=== PATIENT | male | born 1975 | race Two or more races ===

== ENCOUNTER 2025-10-07 08:31 | Day surgery (SDC) | payer MEDICAID ==
[2025-10-02 11:53] LABS: Hematocrit 51.0 % (41.0-53.0); Hemoglobin 17.5 g/dL (13.5-17.5); Mean Corpuscular Hemoglobin 32.8 pg (28.0-32.0); Mean Corpuscular Volume 95.4 fL (80.0-100.0); Nucleated Red Blood Cells % 0.1 %
[2025-10-02 11:59] LABS: Urine Protein, UAD TRACE (Negative)
[2025-10-02 12:12] LABS: INR 1.07 (0.9-1.15); Partial Thromboplastin Time 28.6 SEC (24.5-34.5); Prothrombin Time 11.3 sec (9.3-11.8)
[2025-10-02 12:48] LABS: Alanine Aminotransferase 34 U/L (7-40); Albumin 4.6 g/dL (3.2-4.8); Anion Gap 10 (5-15); BUN/Creatinine Ratio 10.3 (10.0-20.0); Bilirubin, Total 0.9 mg/dL (0.2-1.0); Blood Urea Nitrogen 10 mg/dL (9-23); Calcium 9.4 mg/dL (8.7-10.4); Carbon Dioxide 29 mmol/L (20-31); Chloride 105 mmol/L (98-107); Glucose 94 mg/dL (74-106); Potassium 4.2 mmol/L (3.5-5.1); Sodium 144 mmol/L (136-145); Total Protein 7.4 g/dL (5.7-8.2)
[2025-10-02 12:56] LABS: Alkaline Phosphatase 124 U/L (46-116)
[~2025-10-07] VITALS: Ht 172.7 cm; Wt 90.7 kg
[~2025-10-07 08:31] MED LIST: BACL20TA PO; BUSP7.5T8 PO; HYDR10SY18 PO; OLAN1TAB PO; OXCA600T3 PO; QUET50TA PO
[2025-10-07] MEDS ORDERED: MEPERIDINE HCL (25 MG/ML) 1ML VIAL ONE (08:42)
[2025-10-07] MEDS ORDERED: fentaNYL CITRATE 100 MCG/2 ML VL ONE (08:42)
[2025-10-07] MEDS ORDERED: MIDAZOLAM HCL 2MG/2ML 2ml VIAL (1mg/ml) ONE (08:42)
[2025-10-07] MEDS ORDERED: LIDOCAINE HCL 2% TOP JELLY 5ML TOP ONE (08:42)
[2025-10-07] MEDS ORDERED: SODIUM CHLORIDE LOCK 50 ML ONE (08:42)
[2025-10-07] MEDS ORDERED: LIDOCAINE 1% INJ PF 5ML AMP ONE (08:42)
[2025-10-07] MEDS ORDERED: ONDANSETRON HCL 4 MG/2 ML VIAL ONE (08:42)
[2025-10-07] MEDS ORDERED: ceFAZolin 2 GM/D5W50ml 50 ML IV ONE (08:43)
[2025-10-07] MEDS ORDERED: KETAMINE 50mg/ML 1ml syringe ONE (08:44)
[2025-10-07] MEDS ORDERED: KETOROLAC TROMETH 30 MG/ML 1ML VIAL IV ONE (08:45)
[2025-10-07] MEDS ORDERED: HYDROmorphone HCL 2 MG/ML VL/or syr IV PRN ×2 (08:45)
[2025-10-07] MEDS ORDERED: MORPHINE SULFATE 4 MG/ML SYR/VIAL IV PRN (08:45)
[2025-10-07] MEDS ORDERED: METOCLOPRAMIDE HCL 5MG/ml INJ 2ml VIAL IV PRN (08:45)
[2025-10-07] MEDS ORDERED: BUPIVACAINE HCL 50 ML ONE (09:00)
[2025-10-07] MEDS ORDERED: MORPHINE SULFATE INJ 2 MG/ml SYRG IV PRN (09:27)
[2025-10-07 10:23] VITALS: TEMP 97.1
--- NOTE | 2025-10-07 10:27 | DVHOP2 ---
Operative Report - 2 Report Details Date: 10/07/25 Preop Diagnosis: Right knee possible ACL tear, possible meniscus re-tear Postop Diagnosis: Right knee medial plica with anterior fat pad impingement Surgeon: Carmen Sullivan MD Overnight Houseperson: Ned Gaines, Physician Overnight Houseperson Anesthesiologist: Dr Tao Anesthesia: General Implant: None Consent: The patient was informed of the risks and benefits of the procedure. These include but are not limited to complications of anesthesia, postoperative infection, incomplete relief of symptoms, recurrence of symptoms, damage to blood vessels, nerves and tendons, deep venous thrombosis, pulmonary embolism and possible need for repeat surgery in the future. Complications: None Estimated Blood Loss: Less than 5 mL Indications for Surgery: The patient is a 49-year-old male who presented to the clinic with a history of chronic knee pain. He had prior history of knee arthroscopy. He had a recent fall and clinical examination was concerning for possible ACL tear. He had multiple episodes of instability in the past as well. Nonoperative and operative management options were discussed. Surgery in the form of diagnostic arthroscopy due to chronic pain, possible ACL repair versus allograft re construction was discussed with him. Benefits, risks and treatment alternatives were discussed. Specific complications of the surgery such as neurovascular injury, infection, arthrofibrosis, loss of limb or life were discussed. He decided to proceed with the surgical option. Name of Procedure Performed Right knee diagnostic arthroscopy, medial plica excision Procedure Details Procedure Details: The patient was identified in the preoperative holding area and the surgical site was marked. The consent was verified. The patient was brought into the operating room and placed supine on the operating table. General anesthesia was administered. A tourniquet was applied over the proximal thigh. All the bony prominences were appropriately padded. The knee was positioned appropriately. The extremity was now prepped and draped in the usual sterile manner. A timeout was called out to confirm the identity of the patient, the nature of surgery, the site of surgery, the availability of implants and x-rays and allergies to medications. A standard anterolateral portal was established. A 30 degree scope was inserted. A standard anteromedial portal was established, a probe was inserted and the findings are as follows 1. Intact medial meniscus 2. Intact ACL and PCL 3. Intact medial compartment cartilage 4. Intact lateral meniscus and lateral compartment cartilage 5. Intact patellofemoral joint with normal bio kinematics 6. Large area of arthrofibrosis/scar tissue/medial plica in the anterior compartment The ACL was carefully evaluated. It had good tension and was overall intact. There was a small partial tear with a small cyclops lesion that was debrided. However 90% of the ACL was intact. There was a large wad of scar tissue in the anterior aspect of the knee with the impingement of the medial femoral condyle, most likely a medial plica. This was carefully excised with the help of a shaver. Impingement free range of motion was noted. The knee was stable to exam with a negative Liset test Irrigation was given. The skin incisions were closed with 3-0 Monocryl. Sterile dressing was applied. Local anesthetic was injected. The knee was placed in a hinged [id number] brace side and 0-70. Disposition: Good, the patient was extubated and taken to the recovery without any complication Plan: Weightbear as tolerated. Range of motion as tolerated. Condition Good Disposition Home CARMEN SULLIVAN MD Oct 07, 2025 10:27
[2025-10-07 11:20] VITALS: BP 134/90; PULSE 97; RESP 11; O2SAT 97
== END 2025-10-07 11:35 | disposition home or self-care (01) ==
LOC: SUR 08:31
PROVIDERS: ATTEND Orthopaedic Surgery Sports Medicine
DX: M67.51 Plica syndrome, right knee (principal); M79.4 Hypertrophy of (infrapatellar) fat pad; S83.511A Sprain of anterior cruciate ligament of right knee, initial encounter; M24.661 Ankylosis, right knee; G89.29 Other chronic pain; M25.861 Other specified joint disorders, right knee; F31.89 Other bipolar disorder; E66.9 Obesity, unspecified; Z68.30 Body mass index [BMI] 30.0-30.9, adult; Z79.899 Other long term (current) drug therapy; Z98.890 Other specified postprocedural states; X58.XXXA Exposure to other specified factors, initial encounter; Y93.89 Activity, other specified; Y92.89 Other specified places as the place of occurrence of the external cause; Y99.8 Other external cause status
CPT/HCPCS: 29875; 36415; 80053; 81001; 85025; 85610; 85730; J0690; J2175; J2250; J2405; J3010; J3490